=== PATIENT | male | born 1945 | race African-American/Black ===

== ENCOUNTER 2016-08-03 14:15 | Observation (INO) ==
[2016-08-03] MEDS ORDERED: ASPIRIN 81 MG CHEWABLE TABLET PO ONE (14:38)
--- NOTE | 2016-08-03 14:43 | Emergency Department Report ---
Chest Pain HPI - General Chief Complaint: Chest Pain Stated Complaint: cp Time Seen by Provider: 08/03/16 14:21 Source: patient, family (Raoul, nephew) Mode of arrival: ambulatory Limitations: other (mental retardation) - History of Present Illness HPI narrative: Eric is a 71 year old gentleman with underlying mental retardation who comes to the Er accompanied by nephew. CC: Chest pain. History difficult to obtain secondary to patient's communication difficulties. Reportedly chest pain started about 15 minutes [employer] and is to mid chest. No fevers. no cough. Did have syncopal episode on Tuesday (2 days ago). Prior hx of same with dx of PE at that time 02/2015 [place] [facility] [place] No other known syncopal episodes per family. Takes Coumadin. Saw PCP Dr. Kumar yesterday and had some lab drawn. Nephew reports being called and told Coumadin dose needed increased and to dc amlodipine. He does not know what INR was yesterday. Patient has been complaining of lower leg pain, but that is not uncommon according to nephew. Difficulty obtaining comprehensive information on patient -family attentive, but patient not able to describe pain fully or identify accompanying features. MD complaint: chest pain Occurred At: home Onset (ago): minute(s) (15) Duration: constant Pain location: substernal Aspirin Today: 325 mg x 1, provided by ED Nitro Today: no nitro taken today Treatments prior to arrival chest pain: none - Related Data Home Medications Medication Instructions Recorded Confirmed Atorvastatin Calcium 20 mg PO HS #0 tab 03/10/15 08/03/16 Multivitamin [Multi-Vitamin Daily] 1 tab PO DAILY #0 03/10/15 08/03/16 Calcium 600 + D [Caltrate + D] 1 tab PO DAILY 08/03/16 08/03/16 Losartan/Hctz 100/25 [Hyzaar 1 tab PO DAILY 08/03/16 08/03/16 100/25] Warfarin [Coumadin] 5 mg PO DAILY 08/03/16 08/03/16 Allergies Allergy/AdvReac Type Severity Reaction Status Date / Time No Known Allergies Allergy Verified 08/03/16 14:39 Review of Systems All systems: reviewed and negative except as stated Constitutional: Denies: fever ENT: Denies: congestion Cardiovascular: Reports: chest pain Respiratory: Denies: cough Gastrointestinal: Denies: abdominal pain, nausea, vomiting Musculoskeletal: Denies: back pain Neurological: Reports: as per HPI Psychiatric: Reports: as per HPI PFSH Patient Stated Medical History Hypertension Yes Pulmonary Embolism Yes Hx Benign Prostatic Yes Hyperplasia Hx Incontinence Yes Clotting Problems Yes: DVT HTN, Pulmonary Embolus, Mental retardation, Prostate CA Surgical History: prostatectomy - Social History Smoking status: Never smoker Substance use type: does not use Alcohol intake frequency: does not drink Housing: house Household members: other (sister) Current occupational status: disabled Current residence: Apartment/Private Home Physical Exam - Limitations Limitations: other (MR) - General General appearance: alert, in no apparent distress - Normal Exams: Head:: Normocephalic without trauma ENMT:: No facial trauma Neck:: Full range of motion, without adenopathy Chest/Respirations:: Clear all murray, with good airflow Cardiovascular:: Regular rate and rhythm, without murmur or gallop Abdomen:: Bowel sounds positive, soft, non-tender Lymphatic:: No lymphadenopathy, or lymphedema noted Musculoskeletal:: No tenderness, or deformity noted, good range of motion, all extremities Integumentary:: No rashes Neurological:: Patient is alert, and oriented Psychiatric:: Patient exhibits, appropriate attention Course - Consultations Consultation #1: Davin Time: 15:46 (admit obs) Vital Signs Temperature 98.8 F 08/03/16 14:20 Pulse Rate 94 08/03/16 14:20 Respiratory Rate 21 08/03/16 14:20 Blood Pressure 132/79 08/03/16 14:20 Pulse Oximetry 100 08/03/16 14:20 Temperature 98.8 F 08/03/16 14:20 Pulse Rate 94 08/03/16 14:20 Respiratory Rate 21 08/03/16 14:20 Blood Pressure 132/79 08/03/16 14:20 Pulse Oximetry 100 08/03/16 14:20 Chest Pain - MDM Narrative Medical decision making narrative: Patient with risk factors of age and no prior cardiac workup known. Poor historian. Pain started 15 min [employer]. Initial troponin neg. Ddimer neg. Admit obs hospitalist service for rule out - Differential Diagnosis Likely: atypical chest pain, chest pain - Medical Records Data Attestation: I reviewed the patient's medical records. - Lab Data Attestation: I reviewed the patient's lab results. Result diagrams: 08/03/16 14:45 08/03/16 14:45 Lab Results 08/03/16 08/03/16 08/03/16 Range/Units 14:45 14:45 14:45 WBC 7.8 (4.5-11.0) T/MM3 RBC 3.21 L (4.50-5.90) M/MM3 Hgb 9.5 L (13.5-17.5) GM/DL Hct 28.6 L (41-53) % MCV 89.1 (80-100) UM3 MCH 29.6 (26-34) UUG MCHC 33.2 (31-37) GM/DL RDW Std Deviation 35.3 L (36.9-50.2) FL Plt Count 214 (130-400) T/MM3 MPV 11.4 (9.4-12.4) UM3 Immature Gran % (Auto) 0.3 (0.0-0.5) % Neut % (Auto) 57.0 (33-66) % Lymph % (Auto) 28.9 (23-45) % [place] % (Auto) 8.1 (0-9.0) % Eos % (Auto) 5.1 H (0-4) % Baso % (Auto) 0.6 (0-2) % Neut # 4.5 (1.8-7.7) T/MM3 Lymph # 2.3 (1-4.8) T/MM3 [place] # 0.6 (0-0.8) T/MM3 Eos # 0.4 (0-0.5) T/MM3 Baso # 0.1 (0-0.2) T/MM3 Abs Immat Gran (auto) 0.02 (0.00-0.03) T/MM3 INR 1.90 H (0.99-1.21) D-Dimer < 150 (0-230) NG/ML Turbidity < 20 (0-20) Sodium 145 H (134-144) MEQ/L Potassium 4.5 (3.6-5) MEQ/L Chloride 105 (98-107) MEQ/L Carbon Dioxide 26 (22-30) MEQ/L Anion Gap 14 (5-15) MEQ/L BUN 37.0 H (9-20) MG/DL Creatinine 1.8 H (0.8-1.5) MG/DL GFR Calculation 37 BUN/Creatinine Ratio 21 (6-26) RATIO Glucose 99 (75-110) MG/DL Calculated Osmolality 288 H (261-280) MOSM/KG Calcium 10.0 (8.4-10.2) MG/DL Icterus Index < 2 (0-7) Troponin I < 0.012 (0-0.12) ng/ml B-Natriuretic Peptide 162 (0-175) pg/mL Specimen Hemolysis < 15 (0-25) - Radiology Data Attestation: I reviewed the patient's radiology results. CXR negative - EKG Data EKG #1 EKG shows normal: sinus rhythm Rate: normal Rhythm: NSR [place]/QRS: normal When compared to previous EKG there are: no significant changes Interpretation: no acute changes, normal EKG Disposition Clinical Impression: Chest pain Qualifiers: Chest pain type: unspecified Qualified Code(s): R07.9 - Chest pain, unspecified Disposition: 02 To [facility] Condition: Stable Prescriptions: No Action Multivitamin [Multi-Vitamin Daily] 1 tab PO DAILY #0 Losartan/Hctz 100/25 [Hyzaar 100/25] 1 tab PO DAILY Calcium 600 + D [Caltrate + D] 1 tab PO DAILY Atorvastatin Calcium 20 mg PO HS #0 tab Warfarin [Coumadin] 5 mg PO DAILY Referrals: Andrew Kumar MD [Family Provider] - - Seen By: midlevel
[2016-08-03] MEDS: SALINE FLUSH 10ml SYRINGE IVF PRN ×2 (14:47→15:39)
--- NOTE | 2016-08-03 15:27 | XRay Report ---
Indication: chest pain PROCEDURE: XR chest 1V: Encounter: Initial Comparison: December 07, 2015 Findings: Motion artifact. No gross consolidative pneumonia, pleural effusion or pneumothorax. Heart size is within normal limits. Patient is rotated altering the mediastinal contours. Pulmonary vascularity is normal. Impression: No acute cardiopulmonary disease. .
[2016-08-03] MEDS: NS 500 ML IV SCH ×3 (15:39→22:50)
--- NOTE | 2016-08-03 17:10 | History & Physical Report ---
<Piedad Pastor - Last Filed: 08/03/16 17:06> History of Present Illness Date: 08/03/16 Chief complaint: chest pain HPI: Eric Martell is a 71 y/o male with MR who was taken to [facility] ED today for further evaluation of chest pain. HPI, PMH, and ROS was unobtainable from Eric , but his nephew, Raoul, was able to provide some history. Earlier this afternoon, Eric started grabbing his chest and complaining of pain. He has not had any n/v and had been eating well, though Eric admits his stomach feels "weak". He has not had any shortness of breath or sweating. He has had a mild cold (runny nose and sore throat) without cough or fever. He had similar pain last year when he was diagnosed with PE. Eric states he feels a little weak and dizzy but Raoul hasn't noticed it too much. He did pass out about a week ago, and saw Dr. Kumar yesterday regarding this - lab was done but they don't have results. In the ED, labs showed normocytic anemia with H&H of 9.5 and 28.6. INR was 1.90. Na slightly high at 145 and renal functions were above baseline with BUN of 37 and creatinine of 1.8. Troponin was negative and D- dimer was <150. He was subsequently admitted to observation status for cardiac monitoring and chest pain r/o. Review of Systems ROS unobtainable: due to mental status Review of systems: ROS is limited d/t hx of Incomplete ROS was possible via Eric's nephew, Raoul. PFSH HTN DVT/PE 03/10/15 BPH MR Echo 03/11/15 - EF 75%; mild PH; mod RV enlargement with severe hypokinesis Surgical History: prostatectomy Family History: Positive for heart disease and neurologic conditions; HTN; CHF; prostate cancer - Social History Smoking status: Never smoker Substance use type: does not use Alcohol intake frequency: does not drink Current residence: Apartment/Private Home Medications Home Medications Medication Instructions Recorded Confirmed Type Atorvastatin Calcium 20 mg PO HS #0 tab 03/10/15 08/03/16 History Multivitamin [Multi-Vitamin Daily] 1 tab PO DAILY #0 03/10/15 08/03/16 History Calcium 600 + D [Caltrate + D] 1 tab PO DAILY 08/03/16 08/03/16 History Losartan/Hctz 100/25 [Hyzaar 1 tab PO DAILY 08/03/16 08/03/16 History 100/25] Warfarin [Coumadin] 5 mg PO DAILY 08/03/16 08/03/16 History Allergies Allergy/AdvReac Type Severity Reaction Status Date / Time No Known Allergies Allergy Verified 08/03/16 14:39 Exam Vital Signs: Temp Pulse Resp BP Pulse Ox 98.8 F 78 15 126/70 98 08/03/16 14:20 08/03/16 16:00 08/03/16 16:00 08/03/16 16:00 08/03/16 16:00 Height: 1.68 m Weight: 66.9 kg - Constitutional Present: no acute distress, well nourished, well developed, thin - Routine HEENT Exam Head: Present: normocephalic Eye: Absent: conjunctival icterus ENT: Present: mucous membranes moist - Routine Neck Exam Present: supple. Absent: lymphadenopathy, thyromegaly - Routine Respiratory Exam Present: CTA bilaterally - Routine Cardiovascular Exam Present: RRR, S1, S2 - Routine Abdominal Exam Present: soft, normoactive bowel sounds, non tender, distended (mild) - Routine Extremities Exam Present: no edema, pulses intact (1+ pedal pulses). Absent: calf tenderness - Routine Skin Exam Present: intact, dry, warm - Routine Neurological Exam Present: alert, oriented X3 (baseline) - Routine Psychiatric Exam Present: normal affect Results - Labs CBC & Chem 7: 08/03/16 14:45 08/03/16 14:45 - ECG Data Tracing #1 NSR ECG initial impression date: 08/03/16 ECG normal with no acute: arrhythmias, ischemia, conduction abnormalities, chamber hypertrophy - Imaging and Cardiology Chest x-ray Status: image reviewed by me (malrotation but no obvious infiltrates or CHF) Assessment and Plan (1) CECILE (acute kidney injury) Current visit: Yes Status: Acute (2) History of pulmonary embolism Current visit: Yes Status: Acute (3) Chest pain Current visit: Yes Status: Acute (4) Acute hypernatremia Current visit: Yes Status: Acute Assessment and Plan: Admit, observation status under the hospitalist service. 1. Chest pain -tele -trend trop -lipid panel -echo was done 1/26/16 - EF 75%; mild PH; mod RV enlargement with severe hypokinesis -cont statin 2. CECILE (mild) + mild hypernatremia, POA -baseline cr about 1.2 -received 500 mL NS in ED - will give add'l 500 mL bolus -repeat BMP in am -hold Hyzaar - hx of uncontrolled HTN so may need to select different agent 3. Subtherapeutic INR; PE -give Lovenox 70 mg -consult Pharmacy for Coumadin dosing 4. Normocytic anemia - chronic -stable -iron studies done in Nov 2015 - normal D/W Dr. Jin. PCP - Dr. Kumar. Hospital Course Summary Disclaimer: The visit summary below is not to be considered part of the above Progress Note. Hospital Course: 08/03/16 17:31 Admit, observation status under the hospitalist service. 1. Chest pain -tele -trend trop -lipid panel -echo was done 03/11/15 - EF 75%; mild PH; mod RV enlargement with severe hypokinesis -cont statin 2. CECILE (mild) + mild hypernatremia, POA -baseline cr about 1.2 -received 500 mL NS in ED - will give add'l 500 mL bolus -repeat BMP in am -hold Hyzaar - hx of uncontrolled HTN so may need to select different agent 3. Subtherapeutic INR; PE -give Lovenox 70 mg -consult Pharmacy for Coumadin dosing 4. Normocytic anemia - chronic -stable -iron studies done in Nov 2015 - normal D/W Dr. Jin. PCP - Dr. Kumar. <Yareli Jin - Last Filed: 08/03/16 18:41> History of Present Illness Date: 08/03/16 [facility] Patient Stated Medical History Syncope Yes: WEEK OF 07/29 Hypertension Yes Pulmonary Embolism Yes Hx Benign Prostatic Yes Hyperplasia Hx Incontinence Yes Clotting Problems Yes: DVT Exam Vital Signs: Temp Pulse Resp BP Pulse Ox 98.1 F 77 16 138/76 99 08/03/16 17:49 08/03/16 17:49 08/03/16 17:49 08/03/16 17:49 08/03/16 17:49 Height: 1.68 m Weight: 66.9 kg Results - Labs CBC & Chem 7: 08/03/16 14:45 08/03/16 14:45 Assessment and Plan (1) Chest pain Current visit: Yes Status: Acute (2) History of pulmonary embolism Current visit: Yes Status: Acute (3) CECILE (acute kidney injury) Current visit: Yes Status: Acute (4) Acute hypernatremia Current visit: Yes Status: Acute Assessment and Plan: S: Pt reports cp is resolved but not really able to give much more information. O: Gen: Alert, in no acute distress Cards: RRR without murmurs Abd: soft, non-distended Ext: trace LE edema bilaterally Skin: dry, intact A/P CP -Unlikely cardiac, will rule out with trop trends -ECG unremarkable per ED CECILE -Difficult to tell baseline Cr but possibly 1.2-1.4 -Likely pre-renal, will give IV fluids and check tomorrow PE -On coumadin, INR subtherapeutic -Will do lovenox until inr therapeutic Pt was seen and examined independently and plan of care was discussed with CONTINUOUS MINING OPERATOR/ PA. Hospital Course Summary Disclaimer: The visit summary below is not to be considered part of the above Progress Note.
[2016-08-03] MEDS ORDERED: ENOXAPARIN 80 MG/0.8 ML INJECTION SQ SCH ×2 (17:30→18:15)
[2016-08-03] MEDS ORDERED: ATORVASTATIN 20 MG TABLET PO SCH (22:00)
[2016-08-04] MEDS: SALINE FLUSH 10ml SYRINGE IVF PRN (05:21)
--- NOTE | 2016-08-04 08:50 | Pharmacy Consult ---
Pharmacy Consult-Warfarin - Laboratory Information 08/04/16 07:22 INR 1.96 H The patient's INR was sub-therapeutic today so I'm ordering Warfarin 6 mg at noon. Patient is currently on Enoxaparin 70 mg sq BID to bridge until the warfarin is therapeutic. The patient has a past PE. Thanks for the protocol, Fermin Ferris RPh
[2016-08-04] MEDS ORDERED: WARFARIN 5 MG TABLET PO SCH (09:00)
[2016-08-04] MEDS: NS 500 ML IV SCH ×9 (09:51→10:00)
--- NOTE | 2016-08-04 10:10 | Discharge Summary ---
<Piedad Pastor Porfirio - Last Filed: 08/04/16 10:06> Discharge Information Date of admission: 08/03/16 16:40 Attending Physician: Yareli Jin MD Primary care physician: Andrew Kumar MD Consults: 08/03/16 Pharmacy Consult [CONS] Routine Pharmacy Consult: Coumadin/Warfarin - Discharge Diagnosis (1) CECILE (acute kidney injury) Status: Acute (2) History of pulmonary embolism Problem Details: INR still subtherapeutic on discharge at 1.96 - recheck on 08/05 & f/u with Dr. Kumar for further Coumadin dosing Status: Acute (3) Chest pain Qualifiers: Chest pain type: unspecified Qualified Code(s): R07.9 - Chest pain, unspecified Status: Resolved (4) Acute hypernatremia Status: Resolved - Laboratory Labs: 08/04/16 04:54 08/04/16 04:54 - Radiology Radiology: CXR negative for acute disease History of Present Illness HPI: Eric Martell is a 71 y/o male with who was taken to [place] ED today for further evaluation of chest pain. HPI, PMH, and ROS was unobtainable from Eric , but his nephew, Raoul, was able to provide some history. Earlier this afternoon, Eric started grabbing his chest and complaining of pain. He has not had any n/v and had been eating well, though Eric admits his stomach feels "weak". He has not had any shortness of breath or sweating. He has had a mild cold (runny nose and sore throat) without cough or fever. He had similar pain last year when he was diagnosed with PE. Eric states he feels a little weak and dizzy but Raoul hasn't noticed it too much. He did pass out about a week ago, and saw Dr. Kumar yesterday regarding this - lab was done but they don't have results. In the ED, labs showed normocytic anemia with H&H of 9.5 and 28.6. INR was 1.90. Na slightly high at 145 and renal functions were above baseline with BUN of 37 and creatinine of 1.8. Troponin was negative and D- dimer was <150. He was subsequently admitted to observation status for cardiac monitoring and chest pain r/o. Hospital Course Hospital course: Eric was admitted to observation status for chest pain and pre-renal CECILE. EKG and CXR were negative; troponin was negative x3. Hyzaar was held due to elevated renal functions. He received 1L of NS and creatinine improved to 1.5 the following day. Sodium level also improved to 143. His INR was subtherapeutic and Lovenox was given to bridge his INR until it became therapeutic. On the day of discharge INR improved to 1.96 and Lovenox 100 mg was given prior to discharge. On day of discharge, his lungs were clear and heart RRR; abdomen was mildly distended but nontender with positive bowel sounds. He was passing flatus and received a SennaPlus before going home. Recommend f/u with Dr. Kumar next week. Plan: 1. Hold Hyzaar for now due to CECILE 2. Recheck BMP on 08/06 3. Recheck INR on 08/09 - Fax results to Dr. Kumar to make further adjustments in Coumadin dosing and to determine if he needs bridging 4. Continue with bowel motivation at home 5. F/U with Dr. Kumar within a week to check on renal status, INR, and resumption of Hyzaar; plus ongoing eval of recent syncopal event. 6. Lipid panel pending at time of discharge, but he is already on a statin. DVT Prophylaxis: Coumadin Discharge Plan - Med Rec/Dispo Referrals/Follow Up: Andrew Kumar MD [Family Provider] - 1 Week Additional Instructions: Plan: 1. Hold Hyzaar for now due to CECILE 2. Recheck BMP on 08/06 3. Recheck INR on 08/09 - Fax results to Dr. Kumar to make further adjustments in Coumadin dosing and to determine if he needs bridging 4. Continue with bowel motivation at home 5. F/U with Dr. Kumar within a week to check on renal status, INR, and resumption of Hyzaar; plus ongoing eval of recent syncopal event. 6. Lipid panel pending at time of discharge, but he is already on a statin. Prescriptions: New Senna + Docusate [Senna Plus Tablet] 1 tab PO BID PRN #30 tablet PRN Reason: Constipation Continue Multivitamin [Multi-Vitamin Daily] 1 tab PO DAILY #0 Calcium 600 + D [Caltrate + D] 1 tab PO DAILY Atorvastatin Calcium 20 mg PO HS #0 tab Warfarin [Coumadin] 5 mg PO DAILY Discontinued Losartan/Hctz 100/25 [Hyzaar 100/25] 1 tab PO DAILY Discharge Instructions/Outpatient Orders: BMP - Basic Metabolic - [facility] Time Frame: 5 Days, Location: Determined By Patient INR - [facility] Location: Determined By Patient - Disposition 01 Discharged Home, Self-Care <Yareli Jin - Last Filed: 08/04/16 11:31> Discharge Information Date of admission: 08/03/16 16:40 Attending Physician: Yareli Jin MD Primary care physician: Andrew Kumar MD Consults: 08/03/16 Pharmacy Consult [CONS] Routine Pharmacy Consult: Coumadin/Warfarin - Discharge Diagnosis (1) Chest pain Qualifiers: Chest pain type: unspecified Qualified Code(s): R07.9 - Chest pain, unspecified Status: Resolved (2) History of pulmonary embolism Problem Details: INR still subtherapeutic on discharge at 1.96 - recheck on 08/05 & f/u with Dr. Kumar for further Coumadin dosing Status: Acute (3) CECILE (acute kidney injury) Status: Acute (4) Acute hypernatremia Status: Resolved - Laboratory Labs: 08/04/16 04:54 08/04/16 04:54 Hospital Course Hospital course: Pt doing well and CP was of non-cardiac etiology with ECG unremarkable and trop negative. Pt was just below INR of 2 so a one time lovenox dose was given of 1.5mg/kg and a recheck of the INR was planned for tomorrow. Pt did well on day of discharge. CECILE improved with IV fluids and Cr was close to baseline. Would recommend re-starting Hyzaar in 1-2 days depending on BPs.
[2016-08-04] MEDS ORDERED: SENNA + DOCUSATE TABLET PO ONE (10:15)
[2016-08-04] MEDS ORDERED: ENOXAPARIN 100 MG/ML INJECTION SQ SCH (10:15)
[2016-08-04] MEDS ORDERED: WARFARIN 6 MG TABLET PO SCH (12:00)
[2016-08-05] MEDS ORDERED: SENNA + DOCUSATE TABLET PO ONE (10:15)
== END 2016-08-04 12:00 | disposition home or self-care (01) ==
LOC: SRG 14:15 → ED 14:15 → SRG 16:44
PROVIDERS: ADMIT Internal Medicine; ATTEND Internal Medicine